=== PATIENT | female | born 1980 | race Caucasian/White ===

== ENCOUNTER 2025-02-28 08:15 | Emergency (ER) | payer OTHER, SELFPAY ==
[2025-02-28 08:26] VITALS: BP 151/88
[2025-02-28 08:28] VITALS: BP 151/88
--- NOTE | 2025-02-28 08:50 | EDRN ---
This RN assumed care of pt at this time.
[2025-02-28 08:57] VITALS: BMI 35.0
--- NOTE | 2025-02-28 09:55 | EDRN ---
Cyn BRENNAN in room w/pt
--- NOTE | 2025-02-28 10:05 | ED.GENMED ---
History of Present Illness
General
Chief Complaint: Musculo-Skeletal Complaint
Source: patient
Exam Limitations: none
Time Seen by Provider: 02/28/25 09:47
History of Present Illness
History of Present Illness:
44yo right hand dominant female presenting for evaluation of right elbow pain x 6 weeks. She initially noticed the pain after she was pitching at her child's softball game. She has been experiencing persistent pain since then. Pain is located
from the elbow down to the wrist. Pain is worse with certain movements. She is able to slat pickler her child fine but has pain when holding a glass or making a fist. She describes the pain as searing and she has intermittent tingling in her wrist
region. She was seen at urgent care and had x-rays which were normal and was diagnosed with tennis elbow. She has been taking ibuprofen with mild relief. She tried to make an appointment with orthopedics but they do not have any availability for
2-3 weeks. Pain kept her up from sleep last night so she decided to come to the ED. 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
Phy Exam
General Physical Exam
General Presentation: well appearing and no apparent distress
General age: appears stated age
General Skin: warm and dry
General Habitus: normal
General Mental: alert
ENT Exam
ENT Exam: normocephalic
Neurological Exam
Neurological Exam: alert
[place] Coma Scale
Eye Opening: Spontaneous
Verbal Response: Oriented
Motor Response: Obeys Commands
GCS Total Score: 15
Musculoskeletal Exam
Musculoskeletal Exam: other (R elbow: Normal to inspection without swelling or skin changes. ROM of elbow normal. Pain elicited with supination and resisted wrist flexion. +Tenderness along proximal extensor musculature in forearm. Decreased property assessment monitor
strength due to pain. 2+ radial pulse and sensation intact. )
Skin Exam
Skin Exam: normal color and warm/dry
Psychiatric Exam
Psychiatric Exam: normal mood/affect
Course
Vital Signs
Initial and Last Documented VS:
Initial Vital Signs
Temp Pulse Resp BP Pulse Ox
98.8 F 74 16 151/88 98
02/28/25 08:26 02/28/25 08:26 02/28/25 08:26 02/28/25 08:26 02/28/25 08:26
Last Documented Vital Signs
Temp Pulse Resp BP Pulse Ox
98.0 F 88 16 151/88 98
02/28/25 08:28 02/28/25 08:28 02/28/25 08:28 02/28/25 08:28 02/28/25 10:08
MDM/Problems Addressed
Differential Diagnosis Includes:
44yoF here with R elbow pain x 6 weeks. Diagnosed with tennis elbow at urgent care. Has ortho appt in 2-3 weeks. Pain keeping her up at night so she came to the ED. Elbow appears normal on exam without swelling. There is pain with resisted wrist
flexion and decreased property assessment monitor strength 2/2 pain. RUE is neurovascularly intact. Differential diagnosis includes: lateral epicondylitis, medial epicondylitis, muscular strain, doubt fracture given normal outpatient x-rays
Will defer repeat imaging at this time. Will trial course of prednisone. She is requesting something stronger for pain and prescription for Robaxin provided. Discussed need for outpatient ortho f/u. [facility] unable to get patient in for several
weeks. She was given contact information for [facility].
*Pulse Oximetry
SaO2: 98
Oxygen Mode of Delivery: Room air
Patient hypoxic: no
*Critical Care Note
Total Time (30-74mins, 75-104mins- exclusive of procedures): Not Applicable
ED Attending Note
-
Portions of this chart may have been created with voice recognition software.� Occasional wrong word or��sound alike� substitutions may have occurred due to the inherent limitations of voice recognition software.
Discharge Plan
Departure
Patient Disposition: Home (Routine Discharge)
Date of Disposition: 02/28/25
Time of Disposition: 10:09
Patient with high blood pressure during this ER visit?: Yes
Discharge Problem:
Tendinopathy of right elbow
Instructions: Tendinopathy (DC)
Prescriptions:
New
prednisone 20 mg tablet
40 mg PO DAILY 5 Days Qty: 10 0RF
methocarbamol 750 mg tablet
750 mg PO Q8H PRN (Reason: muscle spasms) Qty: 20 0RF
No Action
sertraline 100 mg Tablet
100 mg PO DAILY
ondansetron 4 mg tablet,disintegrating
4 mg PO Q8H PRN (Reason: nausea and vomiting) 4 Days Qty: 12 0RF
omeprazole 20 mg capsule,delayed release(DR/EC)
20 mg PO DAILY Qty: 14 0RF
Referrals:
Aung Cantu MD [Active, Orthopedics]
Brandee Yeung MD [Family Provider, Family Practice]
Activity Restrictions/Additional Instructions:
Take prednisone as prescribed. Avoid ibuprofen while taking prednisone. You may take Tylenol as needed. A prescription for a muscle relaxer was also sent to your pharmacy that you can try.
Please call today to schedule a follow-up with orthopedics.
Interventions
Interventions:
*Risk Screen - Suicide Last Done: 02/28/25 08:28
*General Assessment Last Done: 02/28/25 08:53
*Neglect/Abuse Screening Last Done: 02/28/25 08:28
*ED- Fall Risk Assessment Last Done: 02/28/25 08:53
*ED COVID-19 Vaccine History Last Done: 02/28/25 08:53
*ED Influenza Vaccine History Last Done: 02/28/25 08:53
*Nursing Disposition Last Done: 02/28/25 10:20
ED-Musculoskeletal Assessment Last Done: 02/28/25 08:55
Discharge Date and Time
Discharge Date/Time: 02/28/25 10:21
Print Language: WOLOF
== END 2025-02-28 10:21 | disposition home or self-care (01) ==
LOC: EMR 08:15
PROVIDERS: EMERGENCY PHYSICIAN Emergency Medicine; FAMILY PHYSICIAN Family Medicine
DX: M77.10 Lateral epicondylitis, unspecified elbow (principal)
CPT/HCPCS: 99282